=== PATIENT | male | born 1990 | race Caucasian/White ===

== ENCOUNTER 2017-02-06 05:52 | Inpatient (IN) | payer OTHER ==
--- NOTE | ~2017-02-06 | PN ---
Unit #: [id number] #: [id number] Patient: SHERRON MCKEON [id number] [facility] [address] [place] [address] [id number] MR#: [id number] NAME: SHERRON MCKEON. ROOM: P180 Age: 26 Sex: M Admission Date: 02/06/2017 : 1990 Attending Physician: Jacob Fulton M.D. Admitting Physician: Jacob Fulton M.D. Primary Care Physician: Geovanni Benedict Jr., D.ORajinder RECINOS PROGRESS NOTES DATE OF SERVICE 02/07/2017 DISCUSSION Mr. Mckeon is a 26-year-old white male with substance abuse and mood disorder who was seen today. Chart was reviewed and case was discussed with the staff. He was lying in his bed and seen to be rather anxious, restless, unkempt, and disheveled though he stated that he is starting to feel better. Meanwhile, he has been taking the medications and tolerating them fairly well. MENTAL STATUS EXAMINATION Young white male who is casually dressed with fair personal hygiene, appears to be in no acute distress or discomfort. The patient was awake and alert on interaction with intact orientation. His mood is anxious with a congruent affect. He denies any suicidal or homicidal ideations. His insight and judgment remain slightly impaired. TREATMENT PLAN 1. We will continue him on his current medications and treatment protocol. We will monitor his response to the medications and make further adjustments as needed. 2. We will continue to follow up. Dictated by... Terrell Estrada/eric TD: 02/08/2017 14:03 JOB #: [id number] Unit #: [id number] #: [id number] Patient: SHERRON MCKEON JORJE PROGRESS NOTES Page 1 of 1 X Jacob Fulton MD PROGRESS NOTE
--- NOTE | ~2017-02-06 | PN ---
Unit #: [id number] #: [id number] Patient: SHERRON MCKEON [id number] [facility] [address] [place] [address] [id number] I MR#: [id number] NAME: SHERRON MCKEON. ROOM: P180 Age: 26 Sex: M Admission Date: 02/06/2017 : 1990 Attending Physician: Jacob Fulton M.D. Admitting Physician: Jacob Fulton M.D. Primary Care Physician: Geovanni Benedict Jr., D.ORajinder RECINOS PROGRESS NOTES DATE February 07, 2017 DISCUSSION Mr. Mckeon was seen today and chart was reviewed and the case was discussed with the staff. He appears to be doing fairly well but has been having some significant withdrawal symptoms. Meanwhile, he has been seclusive to himself and he has been having symptoms of anxiety and restlessness. He has been taking the medications and tolerating them fairly well. MENTAL STATUS EXAMINATION Young white male, who was casually dressed with fair personal hygiene and appears to be in no acute distress or discomfort. He was awake and alert on interaction with intact orientation. His mood is anxious with a congruent affect. He denies any suicidal or homicidal ideations. His insight and judgment remain slightly impaired. TREATMENT PLAN 1. We will continue him on his current medications and treatment protocol, and will monitor his response to the medications, and make further adjustments as needed. 2. We will continue to followup. Dictated by... Terrell Estrada/rose TD: 02/08/2017 06:56 JOB #: [id number] Unit #: [id number] #: [id number] Patient: SHERRON MCKEON PROGRESS NOTES Page 1 of 1 X Jacob Fulton MD PROGRESS NOTE
--- NOTE | ~2017-02-06 | PN ---
Unit #: [id number] #: [id number] Patient: SHERRON MCKEON [id number] [facility] [address] [place] [address] [id number] I MR#: [id number] NAME: SHERRON MCKEON. ROOM: P180 Age: 26 Sex: M Admission Date: 02/06/2017 : 1990 Attending Physician: Jacob Fulton M.D. Admitting Physician: Jacob Fulton M.D. Primary Care Physician: Geovanni Benedict Jr., D.ORajinder RECINOS PROGRESS NOTES DATE February 10, 2017 DISCUSSION Mr. Mckeon is a 26-year-old white male, who was seen today and chart was reviewed and the case was discussed with the staff. He has been anxious, withdrawn, but has not shown any agitation, irritability, and overall appears to be doing much better. He has been calm and compliant with the treatment recommendations and he has been taking medications. MENTAL STATUS EXAMINATION Young white male, who was casually dressed with fair personal hygiene and appears to be in no acute distress or discomfort. He was awake and alert on interaction with intact orientation. His mood is anxious with a congruent affect. His speech is slow and goal-directed. He denies any suicidal or homicidal ideations, and also denies any auditory or visual hallucinations. His insight and judgment remain slightly impaired. TREATMENT PLAN 1. We will continue him on his current medications and treatment protocol, and will monitor his response to the medications, and make further adjustments as needed. 2. We will continue to followup. Dictated by... Terrell Estrada/rose TD: 02/11/2017 13:08 JOB #: [id number] Unit #: [id number] #: [id number] Patient: SHERRON MCKEON PROGRESS NOTES Page 1 of 1 X Jacob Fulton MD PROGRESS NOTE
--- NOTE | ~2017-02-06 | PA ---
Unit #: [id number] #: [id number] Patient: SHERRON MCKEON [id number] [facility] [address] [place] [address] [id number] MR#: [id number] NAME: SHERRON MCKEON. ROOM: P180 Age: 26 Sex: M Admission Date: 02/06/2017 : 1990 Date of Assessment: Attending Physician: Jacob Fulton M.D. Admitting Physician: Jacob Fulton M.D. Primary Care Physician: Geovanni Benedict Jr., D.O. PSYCHIATRIC ASSESSMENT IDENTIFYING DATA Mr. Mckeon is a 26-year-old single white male, who is a resident of [place], [place] and [facility] where he presented to the emergency room with a blood alcohol level of 0.205. CHIEF COMPLAINT "I need help detoxing off alcohol." HISTORY OF PRESENT ILLNESS Mr. Mckeon is a 26-year-old white male with a history of alcohol dependence, who was transferred [facility] where he presented stating that he goes on 4 to 5 day binges and has been drinking up to half of a fifth a day. He reports that he sometimes does not remember how much he drinks and has a history of blackouts and reports that he has been drinking at this rate for the past 7 years. He does report increasing depression, anxiety, disturbed sleep and appetite, poor energy level, psychomotor retardation, feelings of hopelessness and helplessness, but denies any suicidal ideations, intent, or plan. SUBSTANCE ABUSE HISTORY The patient reports that he started drinking at the age of 19, and has been drinking regularly and heavily and has been on a binge and has been drinking up to half of a fifth a day, but denies any other drug abuse. PAST PSYCHIATRIC HISTORY The patient has had a history of chemical dependency treatment in [place] in the past. Currently, he is not active in any treatment program, is not seeing a psychiatrist, not taking any psychotropic medications. PAST MEDICAL HISTORY No acute or chronic medical illnesses. ALLERGIES Penicillin. PERSONAL AND SOCIAL HISTORY A 25-year-old white male, who reports that he is single, unemployed, and lives with his friends and has poor social support system. MENTAL STATUS EXAMINATION Young white male, who was casually dressed with fair personal hygiene, appears to be in no acute distress or discomfort. He was awake and alert Unit #: [id number] #: [id number] Patient: SHERRON MCKEON on interaction with intact orientation to time, place, and person. His mood was anxious with a congruent affect. His speech was slow and goal directed. His thought processes were disorganized with some looseness of associations. He denies any suicidal or homicidal ideations, and also denies any auditory or visual hallucinations. His insight and judgment remain significantly impaired. DIAGNOSTIC IMPRESSION Psychiatric: 1. Alcohol dependence, moderate and acute withdrawals. 2. Alcohol-induced mood disorder. Medical: None. Stressors: Moderate psychosocial stressors. TREATMENT PLAN 1. The patient has presented with a history of substance abuse and dependence and has been decompensating and will need inpatient hospitalization for detoxification, safety, and stabilization. We will start him on detox protocol. We will closely monitor for any worsening withdrawal symptoms. 2. Supportive therapy was provided to the patient. 3. Safe, structured, and nourishing environment will be provided. ESTIMATED LENGTH OF STAY 4 to 5 days. ABILITY TO HELP SELF Limited. WILLINGNESS TO HELP SELF The patient appears to be willing to help self. STRENGTHS 1. Communicative. 2. Cooperative. PROBLEMS 1. Chronic dysphoric symptoms. 2. Chronic chemical dependency. 3. Poor social support system. DISCHARGE CRITERIA This will be contingent upon the patient's ability to go through detox without having any significant withdrawal symptoms as well as his ability to stay safe to himself, particularly after discharge from the hospital. Dictated by... Terrell Estrada/isaac TD: 02/07/2017 06:31 JOB #: [id number] Unit #: [id number] #: [id number] Patient: SHERRON MCKEON PSYCHIATRIC ASSESSMENT Page 1 of 1 X Jacob Fulton MD PSYCHIATRIC ASSESSMENT
--- NOTE | ~2017-02-06 | PN ---
Unit #: [id number] #: [id number] Patient: SHERRON MCKEON [id number] [facility] [address] [place] [address] [id number] MR#: [id number] NAME: SHERRON MCKEON. ROOM: P180 Age: 26 Sex: M Admission Date: 02/06/2017 : 1990 Attending Physician: Jacob Fulton M.D. Admitting Physician: Jacob Fulton M.D. Primary Care Physician: Geovanni Benedict Jr., D.ORajinder RECINOS PROGRESS NOTES DATE 02/09/2017 DISCUSSION Mr. Mckeon is a 26-year-old white male who was seen today and chart was reviewed and case was discussed with the staff. He has been anxious, withdrawn, but has not shown any agitation and he has been cooperative with treatment plan and recommendation and has been taking the medications and tolerating them fairly well. MENTAL STATUS EXAMINATION Young white male who is casually dressed with a fair personal hygiene, appears to be in no acute distress or discomfort. He was awake and alert on interaction with intact orientation. His mood was anxious with a congruent affect. He denies any suicidal or homicidal ideations. His insight and judgment remain slightly impaired. TREATMENT PLAN 1. We will continue him on his current medications and treatment protocol. We will monitor his response and make further adjustments as needed. 2. We will continue to follow up. DISCUSSION Dictated by... Jacob Fulton M.D. IAA/morris TD: 02/10/2017 08:39 JOB #: [id number] Unit #: [id number] #: [id number] Patient: SHERRON MCKEON PROGRESS NOTES Page 1 of 1 X Jacob Fulton MD PROGRESS NOTE
--- NOTE | ~2017-02-06 | PN ---
Unit #: [id number] #: [id number] Patient: SHERRON MCKEON [id number] [facility] [address] [place] [address] [id number] I MR#: [id number] NAME: SHERRON MCKEON. ROOM: P180 Age: 26 Sex: M Admission Date: 02/06/2017 : 1990 Attending Physician: Jacob Fulton M.D. Admitting Physician: Jacob Fulton M.D. Primary Care Physician: Geovanni Benedict Jr., D.ORajinder RECINOS PROGRESS NOTES DATE February 11, 2017 DISCUSSION Mr. Mckeon is a 26-year-old white male, who was seen today and chart was reviewed and the case was discussed with the staff. He has been anxious, withdrawn, and pacing the hallway stating that he is not feeling good and does not feel safe and has been having significant mood instability with increasing anxiety, and agitation and irritability, and restlessness. MENTAL STATUS EXAMINATION Young white male, who was casually dressed with fair personal hygiene and appears to be in no acute distress or discomfort. He was awake and alert on interaction with intact orientation. His mood is anxious with a congruent affect. He reports having suicidal ideation but denies any homicidal ideation, and also denies any auditory or visual hallucinations. His insight and judgment remain significantly impaired. TREATMENT PLAN 1. We will continue him on his current medications and treatment protocol, and will monitor his response to the medications, and make further adjustments as needed, and will also prescribe p.r.n. Vistaril to help with his anxiety. 2. We will continue to followup. Dictated by... Terrell Estrada/rose TD: 02/11/2017 13:13 JOB #: [id number] Unit #: [id number] #: [id number] Patient: SHERRON MCKEON PROGRESS NOTES Page 1 of 1 X Jacob Fulton MD PROGRESS NOTE
--- NOTE | ~2017-02-06 | HP ---
Unit #: [id number] #: [id number] Patient: SHERRON MCKEON [id number] [facility] [place] [address] [id number] MR#: [id number] NAME: SHERRON MCKEON. ROOM: 80 Age: 26 Sex: M Admission Date: 02/06/2017 : 1990 Attending Physician: Jacob Fulton M.D. Admitting Physician: Jacob Fulton M.D. Primary Care Physician: Geovanni Benedict Jr., D.O. HISTORY AND PHYSICAL HISTORY OF PRESENT ILLNESS Sherron is a 26 year old admitted to [facility] because of his abuse of alcohol. He is detoxing. PAST MEDICAL HISTORY Long history of alcohol abuse. PAST SURGICAL HISTORY Nothing reported ALLERGIES Penicillin. SOCIAL HISTORY He smokes less than one pack per day. Describes himself as a frequent binger and denies illicit drug use. FAMILY HISTORY Medically noncontributory. REVIEW OF SYSTEMS CONSTITUTIONAL: No fever or chills. HEENT: Denies any sore throat, ear pain or runny nose. CARDIOVASCULAR: Denies chest pain, irregular heart rhythm or palpitations. CHEST: Denies shortness of breath or cough. No hemoptysis. GASTROINTESTINAL: Denies nausea, vomiting, diarrhea or chronic constipation. ENDOCRINE: Denies history of increased thirst or urination. No recent significant weight loss or gain. GENITOURINARY: Denies dysuria, frequency, or hematuria. SKIN: Denies any rashes. HEMATOLOGIC: Denies history of increased bleeding or bruising. MUSCULOSKELETAL: Denies any hot, swollen joints. No generalized muscle pain. NEUROLOGIC: Denies problems with vision or speech. No frequent, severe headaches. No numbness, tingling or weakness in any extremities. Denies loss of bladder or bowel control. CURRENT MEDICATIONS Detox protocol Unit #: [id number] #: [id number] Patient: SHERRON MCKEON PHYSICAL EXAMINATION GENERAL: Alert, well-nourished, in no apparent distress. VITAL SIGNS: Blood pressure 140/82, heart rate 76, respirations 16, temperature 98.6. WEIGHT: 180 pounds. HEIGHT: 5'11". SKIN: Warm and dry without rash or lesion. HEENT: Normocephalic. TMs not viewed. Oral and nasal passages clear. Conjunctivae clear. Pupils equal, round and reactive to light and accommodation. Extraocular movements intact. NECK: Supple without lymphadenopathy or thyromegaly. HEART: Regular rate and rhythm without murmur. LUNGS: Clear. ABDOMEN: Soft, nontender. : Not done. EXTREMITIES: No evidence of cyanosis, clubbing or edema. Moves all extremities without focal deficit. NEUROLOGICAL: Grossly within normal limits. Cranial Nerves: II: Visual josé are intact. III, IV AND : Extraocular movements are intact. Pupils are equal, round and reactive to light. V: Facial sensation is grossly normal. VII: Facial movements and expression are normal. VIII: Auditory acuity grossly intact. IX, X: Uvula is midline. Phonation is normal. XI: Patient shrugs shoulders and turns head normally. XII: Tongue protrudes in the midline. Sensory and Motor Function: Sensory and motor sensation is grossly normal. Motor: moves all extremities well. Coordination: Gait is normal. Deep Tendon Reflexes: Intact. IMPRESSION Psychiatric admission RECOMMENDATIONS PSYCHIATRIC: Per psychiatrist. MEDICAL: I see no contraindications to participating in facility's activities. MEDICAL PROGNOSIS Good. MEDICAL CONDITION Stable. Dictated by... Sandra Pittman PRajinderARajinder-Fermin. for Terrell Shetty/elijah TD: 02/06/2017 23:09 JOB #: [id number] Unit #: [id number] #: [id number] Patient: SHERRON MCKEON HISTORY AND PHYSICAL Page 1 of 1 X Sandra Pittman X HISTORY AND PHYSICAL
--- NOTE | ~2017-02-06 | DS ---
Unit #: [id number] #: [id number] [facility] [id number] [facility] [address] [place] [address] [id number] I MR#: [id number] NAME: SHERRON MCKEON. ROOM: 85 Age: 26 Sex: M Admission Date: 02/06/2017 : 1990 Discharge Date: 02/12/2017 Attending Physician: Jacob Fulton M.D. Primary Care Physician: Geovanni Benedict Jr., D.O. DISCHARGE SUMMARY IDENTIFYING DATA Mr. Mckeon is a 26-year-old single white male, who is a resident of [place], [place], and was transferred to us from [facility] on a voluntary basis with a blood alcohol level of 0.205. DISCHARGE DIAGNOSES Psychiatric: Alcohol dependence, moderate and acute withdrawals; alcohol-induced mood disorder. Medical: None. Stressors: Moderate psychosocial stressors. HISTORY OF PRESENT ILLNESS Please see initial psychiatric evaluation for details. PAST PSYCHIATRIC HISTORY Please see initial psychiatric evaluation for details. PAST MEDICAL HISTORY Please see initial psychiatric evaluation for details. HOSPITAL COURSE The patient was admitted to the adult chemical dependency unit at [facility] and was oriented to the hospital environment. Routine p.r.n. medications were initiated, and he was started on the detox protocol and was closely monitored. He was complaining of significant anxiety as part of his detox and as such, Vistaril was initiated. Meanwhile, he was taking medications regularly and was tolerating them fairly well and was able to show a decent and therapeutic response and as such, it was decided that he will be discharged home and will continue treatment on an outpatient basis. DISCHARGE MEDICATIONS None. DISCHARGE CONDITION Stable. PROGNOSIS Fair. Dictated by... Jacob Fulton M.D. Unit #: [id number] #: [id number] Patient: SHERRON MCKEON IAA/modl TD: 02/12/2017 06:27 JOB #: [id number] DISCHARGE SUMMARY Page 1 of 1 X Jacob Fulton MD X DISCHARGE SUMMARY
--- NOTE | ~2017-02-06 | PN ---
Unit #: [id number] #: [id number] Patient: SHERRON MCKEON [id number] [facility] [address] [place] [address] [id number] I MR#: [id number] NAME: SHERRON MCKEON. ROOM: P185 Age: 26 Sex: M Admission Date: 02/06/2017 : 1990 Attending Physician: Jacob Fulton M.D. Admitting Physician: Jacob Fulton M.D. Primary Care Physician: Geovanni Benedict Jr., D.ORajinder RIOS NOTES DATE OF SERVICE: 02/10/2017 SUBJECTIVE Mr. Mckeon is a 26-year-old white male, who was seen today and chart was reviewed, and case was discussed with the staff. He has been anxious and withdrawn, though has not shown any agitation or irritability. Overall, he appears to be doing much better, has been calm and cooperative with treatment recommendations and he has been taking medications and tolerating them fairly well with no reported side effects. MENTAL STATUS EXAMINATION Young white male, who was casually dressed with fair personal hygiene, appears to be in no acute distress or discomfort. He was awake and alert on interaction with intact orientation. His mood was anxious with a congruent affect. His speech was slow and goal directed. He denies any suicidal or homicidal ideation, and also denies any auditory or visual hallucinations. His insight and judgment remain slightly impaired. TREATMENT PLAN 1. We will continue him on his current medications and treatment protocol. We will monitor his response to the medication and make further adjustments as needed. 2. We will continue to follow up. Dictated by... Terrell Estrada/isaac TD: 02/12/2017 08:19 JOB #: [id number] Unit #: [id number] #: [id number] Patient: SHERRON MCKEON SERGIOTITA BLANCA NOTES Page 1 of 1 X Jacob Fulton MD PROGRESS NOTE
[2017-02-06 12:29] LABS: BASOPHIL% 0.6 % (0-2.5); EOSINOPHIL% 0.4 % (0.0-7.0); HEMATOCRIT 41.3 % (38.0-50.0); HEMOGLOBIN 13.5 gm/dL (13.0-16.0); LYMPHOCYTE# 1.8 X10e3 (1.0-3.5); LYMPHOCYTE% 22.9 % (17.0-45.0); MEAN CELL VOLUME 86.2 FL (83-96); MEAN CORPUSCULAR HEMOGLOBIN 28.3 PG (28-34); MEAN CORPUSCULAR HGB CONC 32.8 g/dL (30-36); MEAN PLATELET VOLUME 7.3 FL (6.5-11.5); MONOCYTE% 13.1 % (3.0-12.0); NEUTROPHIL# 4.9 X10e3 (1.5-7.1); PLATELET COUNT 273 X10e3 (140-420); RED BLOOD COUNT 4.79 X10e (3.90-5.60); RED CELL DISTRIBUTION WIDTH 13.6 % (11.0-15.5); WHITE BLOOD COUNT 7.7 X10e3 (4.0-10.5)
[2017-02-06 12:47] LABS: ALKALINE PHOSPHATASE 95 U/L (32-92); ALT (SGPT) 30 U/L (10-40); AST (SGOT) 33 U/L (10-42); BILIRUBIN,TOTAL 0.4 mg/dL (0.2-2.0); BLOOD UREA NITROGEN 8 mg/dL (9-23); BUN/CREATININE RATIO 11.42; CALCIUM SERUM 9.1 mg/dL (8.4-10.2); CARBON DIOXIDE 30 mmol/L (22-31); CHLORIDE 102 mmol/L (100-111); CREATININE SERUM 0.7 mg/dL (0.6-1.4); GLOM FILT RATE Estimated ABOVE60 mL/min (>60); GLUCOSE FASTING 103 mg/dL (70-110); POTASSIUM 4.2 mmol/L (3.5-5.1); PROTEIN TOTAL SERUM 6.8 g/dL (6.0-8.3); SODIUM 137 mmol/L (135-145)
[2017-02-06 12:49] LABS: DIFF IND NO; THYROID STIMULATING HORMONE 2.87 uIU/ml (0.34-5.60)
[2017-02-06 12:56] LABS: FREE THYROXIN (T4) 0.67 ng/dL (0.58-1.64)
[2017-02-06 12:56] LABS: URINE APPEARANCE CLEAR; URINE BILIRUBIN NEG (NEG); URINE BLOOD NEG (NEG); URINE COLOR YELLOW; URINE GLUCOSE NEG (NEG); URINE KETONE NEG (NEG); URINE LEUKOCYTE ESTERASE NEG (NEG); URINE NITRATE NEG (NEG); URINE PH 8.5 (5-8); URINE PROTEIN NEG (NEG); URINE SPECIFIC GRAVITY 1.012 (1.003-1.035); URINE UROBILINOGEN 0.2 MG/DL (NEG)
[2017-02-06 13:01] LABS: AMPHETAMINE NEG (NEG); BARBITURATES NEG (NEG); BENZODIAZEPINES NEG (NEG); COCAINE NEG (NEG); MARIJUANA NEG (NEG); OPIATES NEG (NEG); TRICYCLIC ANTIDEPRESSANTS NEG (NEG); U METHADONE NEG (NEG)
== END 2017-02-12 10:35 | DRG 897 ==
LOC: P1E 05:52
PROVIDERS: Psychiatry & Neurology Psychiatry
PROC: HZ2ZZZZ Detoxification Services for Substance Abuse Treatment (ICD-10-PCS; principal; 2017-02-06)
DX: F10.239 Alcohol dependence with withdrawal, unspecified (principal); F10.24 Alcohol dependence with alcohol-induced mood disorder; F17.200 Nicotine dependence, unspecified, uncomplicated; F41.9 Anxiety disorder, unspecified
CPT/HCPCS: 80053; 80307; 81003; 84439; 84443; 85025; 86592